=== PATIENT | female | born 1975 ===

== ENCOUNTER 2016-10-21 17:26 | Emergency (ER) | payer OTHER ==
[2016-10-21 17:26] VITALS: BMI 25.4
[2016-10-21 17:31] VITALS: BP 116/75; PULSE 76; RESP 18; TEMP 97.5; O2SAT 100
[2016-10-21] MEDS ORDERED: Penicillin G Benzathine 2.4 Mill Unit/4 ml Syr IM ONE (17:56)
[2016-10-21] MEDS ORDERED: Penicillin G Benzathine 1.2 Mill Unit/2 ml Syr IM ONE ×2 (18:00)
--- NOTE | 2016-10-21 18:00 | C.PDOC ---
History Of Present Illness 40 yr old female presents to the ER with complaints of sore throat for the past 3 days, associated with fever, chills and generalized myalgia. Reports taking a Tylenol [employer]. Patient denies sick contact, chest pain, SOB, nausea, vomiting, headache, weakness or numbness. Time Seen by Provider: 10/21/16 17:43 Chief Complaint (Nursing): ENT Problem History Per: Patient History/Exam Limitations: no limitations Onset/Duration Of Symptoms: Days (3) Current Symptoms Are (Timing): Still Present Sick Contacts (Context): None Past Medical History Reviewed: Historical Data, Nursing Documentation, Vital Signs Vital Signs: Last Vital Signs Temp 97.5 F L 10/21/16 17:29 Pulse 76 10/21/16 17:29 Resp 18 10/21/16 17:29 BP 116/75 10/21/16 17:29 Pulse Ox 100 10/21/16 18:00 Family History: States: No Known Family Hx - Social History Hx Tobacco Use: No Hx Alcohol Use: No Hx Substance Use: No - Immunization History Hx Tetanus Toxoid Vaccination: No Hx Influenza Vaccination: No Hx Pneumococcal Vaccination: No Review Of Systems Except As Marked, All Systems Reviewed And Found Negative. Constitutional: Positive for: Fever (Subjective), Chills, Other ((+) Generalized myalgia) ENT: Positive for: Throat Pain (Sore throat ) Cardiovascular: Negative for: Chest Pain Respiratory: Negative for: Shortness of Breath Gastrointestinal: Negative for: Nausea, Vomiting Neurological: Negative for: Weakness, Numbness, Headache Physical Exam - Physical Exam Appears: Well, Non-toxic, No Acute Distress Skin: Warm, Dry, No Rash Head: Atraumatic, Normacephalic Oral Mucosa: Moist Throat: Exudate, No Drooling, Other ((+) Bilateral pharyngitis with swelling. Uvula is midline.) Neck: Normal, Normal ROM, Supple Chest: Symmetrical, No Tenderness Cardiovascular: Rhythm Regular, No Murmur Respiratory: Normal Breath Sounds, No Rales, No Rhonchi, No Stridor, No Wheezing Gastrointestinal/Abdominal: Normal Exam, Soft, No Tenderness, No Guarding, No Rebound Extremity: Normal ROM, No Swelling Neurological/Psych: Oriented x3, Normal Speech, Normal Motor ED Course And Treatment O2 Sat by Pulse Oximetry: 100 Medical Decision Making Medical Decision Making: PLAN: * Motrin PO * Decadron PO * Penicillin IM Disposition Counseled Patient/Family Regarding: Diagnosis, Need For Followup, Rx Given - Disposition Referrals: [facility] [Outside] [facility] [Outside] Disposition: HOME/ ROUTINE Disposition Time: 17:58 Condition: IMPROVED Additional Instructions: Agregue scooter cucharadita de funmilayo de tejeda o funmilayo sariah a ocho onzas de agua. El agua salada puede reducir la hinchazn en la garganta extrayendo el agua de los tejidos de chappell garganta. La funmilayo tambin acta tyler un agente antibacteriano b sico, por lo que la funmilayo se utiliza para curar algunos alimentos de estropear por la prevencin del crecimiento de bacterias Prescriptions: Ibuprofen [Motrin] 600 mg PO Q6 #30 tab Instructions: Pharyngitis (ED) Forms: Work Excuse Print Language: BELARUSIAN - Clinical Impression Clinical Impression: Pharyngitis - Scribe Statement The provider has reviewed the documentation as recorded by the Scribe Laya Scott Provider Attestation: All medical record entries made by the Scribe were at my direction and personally dictated by me. I have reviewed the chart and agree that the record accurately reflects my personal performance of the history, physical exam, medical decision making, and the department course for this patient. I have also personally directed, reviewed, and agree with the discharge instructions and disposition.
== END 2016-10-21 18:24 | disposition home or self-care (01) ==
LOC: C.ER 17:26
DX: J02.9 Acute pharyngitis, unspecified (principal)
CPT/HCPCS: 96372; 99283; J0561; J8540

== ENCOUNTER 2016-12-21 14:41 | Observation (INO) | payer OTHER ==
[2016-12-21 14:41] VITALS: BMI 25.4
[2016-12-21 14:46] VITALS: O2SAT 100
[2016-12-21] MEDS ORDERED: Sodium Chloride 0.9% 1,000 ML IV ONE (15:14)
[2016-12-21 15:18] LABS: RBC URINE 2 /hpf (0-3); URINE BILIRUBIN NEGATIVE (NEGATIVE); URINE BLOOD NEGATIVE (NEGATIVE); URINE COLOR Yellow (YELLOW); URINE GLUCOSE (UA) NORMAL (Normal); URINE KETONE NEGATIVE (NEGATIVE); URINE LEUKOCYTE ESTERASE NEG Leu/uL (Negative); URINE PROTEIN NEGATIVE (NEGATIVE); URINE UROBILINOGEN NORMAL mg/dL (0.2-1.0); WBC URINE < 1 /hpf (0-5)
[2016-12-21] MEDS ORDERED: Sodium Chloride 0.9% 1,000 ML ONE (15:19)
[2016-12-21 15:26] LABS: BASO % 0.4 % (0.0-2.0); EOS # 0.1 K/uL (0.0-0.7); EOS % 1.8 % (0.0-4.0); HEMATOCRIT 32.9 % (34.0-47.0); LYMPH # 2.7 K/uL (1.0-4.3); LYMPH % 36.5 % (20.0-40.0); MEAN CELL VOLUME 75.1 fL (81.0-99.0); MEAN CORPUSCULAR HEMOGLOBIN 23.5 pg (27.0-31.0); MEAN CORPUSCULAR HGB CONC 31.3 g/dL (33.0-37.0); MEAN PLATELET VOLUME 9.1 fL (7.2-11.7); MONO # 0.6 K/uL (0.0-0.8); MONO % 8.1 % (0.0-10.0); RED CELL DISTRIBUTION WIDTH 16.2 % (11.5-14.5); WHITE BLOOD COUNT 7.5 K/uL (4.8-10.8)
[2016-12-21 15:45] LABS: CHLORIDE 103 mmol/L (98-107)
[2016-12-21 15:46] LABS: POTASSIUM 3.8 mmol/L (3.6-5.2); SODIUM 138 mmol/L (132-148)
[2016-12-21 15:48] LABS: ALB/GLOB RATIO 1.1 (1.0-2.1); ALKALINE PHOSPHATASE 77 U/L (38-126); AST/SGOT 20 U/L (14-36); BILIRUBIN,TOTAL 0.3 mg/dL (0.2-1.3); BLOOD UREA NITROGEN 14 mg/dL (7-17); CARBON DIOXIDE 26 mmol/L (22-30); GFR AFRICAN-AMERICAN > 60; TOTAL PROTEIN 7.4 g/dL (6.3-8.3)
[2016-12-21 15:49] LABS: ALT/SGPT 23 U/L (9-52); CALCIUM 8.5 mg/dl (8.6-10.4); GLUCOSE,RANDOM 101 mg/dL (65-105)
--- NOTE | 2016-12-21 16:40 | CT ---
PROCEDURE: CT Abdomen and Pelvis without intravenous contrast HISTORY: LEFT FLANK, LLQ PAIN,R/O KIDNEY STONE COMPARISON: None. TECHNIQUE: Technique. Contrast Dose: Radiation dose: Total exam DLP = 294 mGy-cm. This CT exam was performed using one or more of the following dose reduction techniques: Automated exposure control, adjustment of the mA and/or kV according to patient size, and/or use of iterative reconstruction technique. FINDINGS: LOWER THORAX: Unremarkable. LIVER: Unremarkable. No gross lesion or ductal dilatation. GALLBLADDER AND BILE DUCTS: Unremarkable. PANCREAS: Unremarkable. No gross lesion or ductal dilatation. SPLEEN: Unremarkable. ADRENALS: Unremarkable. No mass. KIDNEYS AND URETERS: Unremarkable. No hydronephrosis. No solid mass. VASCULATURE: Unremarkable. No aortic aneurysm. BOWEL: Unremarkable. No obstruction. No gross mural thickening. APPENDIX: Unremarkable. Normal appendix. PERITONEUM: Unremarkable. No free fluid. No free air. LYMPH NODES: Unremarkable. No enlarged lymph nodes. BLADDER: Unremarkable. REPRODUCTIVE: 2 centimeter left ovarian cystic lesion probably representing a physiological cyst. Recommend correlation with pelvic ultrasound.. BONES: No acute fracture. OTHER FINDINGS: None. IMPRESSION: 2 centimeter left ovarian cystic lesion probably representing a physiological cyst. Recommend correlation with pelvic ultrasound..
--- NOTE | 2016-12-21 16:50 | C.PDOC ---
History Of Present Illness 41-year-old female with PMHx of RA presents to the emergency department with complaints of left-flank/low back pain that started four days ago. Pain is constant in nature and radiates to left-lower quadrant/pelvis. Patient has associated nausea and mild dysuria. She denies vomiting, fever, diarrhea, hematuria, vaginal bleeding/discharge. Time Seen by Provider: 12/21/16 14:53 Chief Complaint (Nursing): Back Pain History Per: Patient History/Exam Limitations: no limitations Onset/Duration Of Symptoms: Days Current Symptoms Are (Timing): Still Present Quality Of Discomfort: "Pain" Severity: Moderate Previous Symptoms: Back Pain Associated Symptoms: denies: Incontinence, New Weakness, New Numbness Past Medical History Reviewed: Historical Data, Nursing Documentation, Vital Signs Vital Signs: Last Vital Signs Temp 97.6 F 12/21/16 14:46 Pulse 60 12/21/16 17:51 Resp 18 12/21/16 17:51 BP 119/65 12/21/16 17:51 Pulse Ox 100 12/21/16 18:47 - Medical History PMH: Rheumatoid Arthritis Denies: Chronic Kidney Disease Family History: States: No Known Family Hx - Social History Hx Tobacco Use: No Hx Alcohol Use: No Hx Substance Use: No - Immunization History Hx Tetanus Toxoid Vaccination: No Hx Influenza Vaccination: No Hx Pneumococcal Vaccination: No Review Of Systems Except As Marked, All Systems Reviewed And Found Negative. Constitutional: Negative for: Fever, Chills Cardiovascular: Negative for: Chest Pain, Palpitations Respiratory: Negative for: Cough, Shortness of Breath Gastrointestinal: Positive for: Nausea, Abdominal Pain. Negative for: Vomiting , Diarrhea Genitourinary: Positive for: Dysuria. Negative for: Hematuria, Vaginal Discharge, Vaginal Bleeding Musculoskeletal: Positive for: Back Pain Skin: Negative for: Rash Neurological: Negative for: Weakness, Numbness, Headache Physical Exam - Physical Exam Appears: Well, Non-toxic, In Acute Distress (in mild pain ) Skin: Warm, Dry, No Rash Oral Mucosa: Moist Cardiovascular: Rhythm Regular Respiratory: Normal Breath Sounds, No Rales, No Rhonchi, No Wheezing Gastrointestinal/Abdominal: Bowel Sounds, Soft, Tenderness (mild LLQ/pelvis TTP. (-)McBurney's), No Guarding, No Rebound Back: CVA Tenderness (Mild, left.), No Vertebral Tenderness, No Paraspinal Tenderness Extremity: Normal ROM Neurological/Psych: Oriented x3 ED Course And Treatment - Laboratory Results Result Diagrams: 12/21/16 15:20 12/21/16 15:20 O2 Sat by Pulse Oximetry: 100 (RA) Pulse Ox Interpretation: Normal - CT Scan/US CT ABD/PEL Other Rad Studies (CT/US): Read By Radiologist, Radiology Report Reviewed CT/US Interpretation: Accession No. : [id number]. Patient Name / ID : MAGDALENO QUEZADA / [id number]. Exam Date : 12/21/2016 16:18:14 ( Approved ). Study Comment : Sex / Age : F / 41Y. Creator : Pedrito Mcmillan MD. Dictator : Pedrito Mcmillan MD. Clinical Documentation Spec : Application Administrator : Pedrito Mcmillan MD. Approver2 : Report Date : 12/21/2016 16:39:26. My Comment : . PROCEDURE: CT Abdomen and Pelvis without intravenous contrast. HISTORY: LEFT FLANK, LLQ PAIN,R/O KIDNEY STONE. COMPARISON: None. TECHNIQUE: Technique. Contrast Dose: Radiation dose: Total exam DLP = 294 mGy-cm. This CT exam was performed using one or more of the following dose reduction techniques: Automated exposure control, adjustment of the mA and/or kV according to patient size, and/or use of iterative reconstruction technique. FINDINGS: LOWER THORAX : Unremarkable. LIVER: Unremarkable. No gross lesion or ductal dilatation. GALLBLADDER AND BILE DUCTS: Unremarkable. PANCREAS: Unremarkable. No gross lesion or ductal dilatation. SPLEEN: Unremarkable. ADRENALS: Unremarkable. No mass. KIDNEYS AND URETERS: Unremarkable. No hydronephrosis. No solid mass. VASCULATURE: Unremarkable. No aortic aneurysm. BOWEL: Unremarkable. No obstruction. No gross mural thickening. APPENDIX: Unremarkable. Normal appendix. PERITONEUM: Unremarkable. No free fluid. No free air. LYMPH NODES: Unremarkable. No enlarged lymph nodes. BLADDER: Unremarkable. REPRODUCTIVE : 2 centimeter left ovarian cystic lesion probably representing a physiological cyst. Recommend correlation with pelvic ultrasound.. BONES: No acute fracture. OTHER FINDINGS: None. IMPRESSION: 2 centimeter left ovarian cystic lesion probably representing a physiological cyst. Recommend correlation with pelvic ultrasound.. Progress Note: Bloodwork, UA/HCG ordered and reviewed. Patient given IV Ns bolus , IV toradol. 5:35pm- CT scan (-) for kidney stone, recommends transvaginal US for eval of cystic lesion left ovary/adnexa. Disposition - Disposition Disposition Time: 19:00 Condition: STABLE - Clinical Impression Clinical Impression: LLQ pain - Scribe Statement The provider has reviewed the documentation as recorded by the Scribe Keke Lowry All medical record entries made by the Scribe were at my direction and personally dictated by me. I have reviewed the chart and agree that the record accurately reflects my personal performance of the history, physical exam, medical decision making, and the department course for this patient. I have also personally directed, reviewed, and agree with the discharge instructions and disposition. Physician Patient Turnover Patient Signed Over To: Kirstin Rice Handoff Comments: pending ultrasound and reassessment/dispo
--- NOTE | 2016-12-21 20:51 | US ---
EXAM: US Pelvis Complete, Transabdominal CLINICAL HISTORY: 41 years old, female; Pain; Pelvic pain; LMP 12/18/16 Gender: female TECHNIQUE: Real-time transabdominal pelvic ultrasound (complete) with image documentation. COMPARISON: There are no prior studies for comparison. FINDINGS: Uterus uterus is retroflexed. The uterus measures approximately 8 x 4 x 6 cm. Endometrium could not be identified Right ovary: Right ovary could not be identified Left ovary: Left ovary measures 2.8 x 2.2 x 2.8 cm.There is expected blood flow on Doppler imaging. There is a small follicle Free fluid: No free fluid. Bladder: Bladder is partially distended IMPRESSION: Retroflexed uterus, nonvisualization endometrium; nonvisualization right ovary EXAM: US Pelvis, Transvaginal CLINICAL HISTORY: 41 years old, female; Pain; Pelvic pain; LMP 12/18/16 Gender: female TECHNIQUE: Real-time transvaginal pelvic ultrasound (complete) with image documentation. Transvaginal imaging was used for better evaluation of the endometrium and adnexa. EXAM DATE/TIME: 12/21/2016 5:50 PM COMPARISON: There are no prior studies for comparison. FINDINGS: Uterus: Uterus measures 7.6 x 5.6 x 5.4 cm. Endometrium is thickened and heterogeneous. Endometrium measures approximately 10 mm in width.. There is a 2.6 x 0.7 x 0.9 cm heterogeneous mass projecting in the endometrial canal. There is complex fluid in the endometrial canal. Right ovary: Right ovary measures approximately 3.22 x 1.75 x 3.03 cm.There are multiple small follicles. There is intraovarian blood flow. Left ovary: Left ovary measures approximately 3.07 x 1.95 x 2.40 cm. There are multiple follicles in the left ovary.There is a dominant follicle. There is intraovarian blood flow. Free fluid: There is trace free fluid. Bladder: Bladder is empty IMPRESSION: Thickened endometrium with complex fluid and small mass in the endometrial canal possibly polyp; no torsion; small amount of free fluid is likely physiologic Gynecologic consultation is advised
[2016-12-21 21:37] VITALS: BP 120/76; PULSE 52; RESP 20; TEMP 98.2
== END 2016-12-21 21:26 | disposition home or self-care (01) ==
LOC: C.ER 14:41 → C.9OBSV 19:02
PROVIDERS: ADMIT Emergency Medicine; ATTEND Emergency Medicine
DX: R10.32 Left lower quadrant pain (principal); N84.1 Polyp of cervix uteri; M06.9 Rheumatoid arthritis, unspecified
CPT/HCPCS: 74176; 76830; 76856; 80053; 81001; 83690; 84703; 85025; 96374; 99285; G0378; J1885; J7040

== ENCOUNTER 2017-03-26 16:12 | Emergency (ER) | payer OTHER ==
[2017-03-26 16:12] VITALS: BMI 25.4
[2017-03-26 16:36] VITALS: RESP 18
[2017-03-26 18:01] LABS: RBC URINE < 1 /hpf (0-3); URINE BILIRUBIN NEGATIVE (NEGATIVE); URINE BLOOD NEGATIVE (NEGATIVE); URINE COLOR Yellow (YELLOW); URINE GLUCOSE (UA) NORMAL (Normal); URINE KETONE NEGATIVE (NEGATIVE); URINE LEUKOCYTE ESTERASE NEG Leu/uL (Negative); URINE PROTEIN NEGATIVE (NEGATIVE); URINE UROBILINOGEN NORMAL mg/dL (0.2-1.0); WBC URINE < 1 /hpf (0-5)
--- NOTE | 2017-03-26 18:25 | C.PDOC ---
History Of Present Illness 41 year old female who presents to the ER with a complaint of a gradually worsening diffuse headache for the past 4 days, associated with nausea and dizziness. Patient reports she had a similar episode a few months ago; she saw her PMD who sent her for a CT scan, which was negative, and gave her an Rx for unknown migraine medication. Patient reports taking tylenol today with no relief to pain; denies fever, chills, vomiting, or abdominal pain.no neck pain or stiffness. Time Seen by Provider: 03/26/17 17:29 Chief Complaint (Nursing): Headache History Per: Patient History/Exam Limitations: no limitations Onset/Duration Of Symptoms: Days Current Symptoms Are (Timing): Still Present Preceeding Symptoms: None Associated Symptoms: Nausea. denies: Photophobia, Blurred Vision, Vomiting, Extremity Weakness Recent travel outside of the [place]: No Past Medical History Reviewed: Historical Data, Nursing Documentation, Vital Signs Vital Signs: Last Vital Signs Temp 97.9 F 03/26/17 20:06 Pulse 61 03/26/17 20:06 Resp 18 03/26/17 20:06 BP 101/62 03/26/17 20:06 Pulse Ox 100 03/29/17 23:13 - Medical History PMH: Rheumatoid Arthritis Surgical History: No Surg Hx Family History: States: Unknown Family Hx - Social History Hx Tobacco Use: No Hx Alcohol Use: No Hx Substance Use: No - Immunization History Hx Tetanus Toxoid Vaccination: No Hx Influenza Vaccination: No Hx Pneumococcal Vaccination: No Review Of Systems Constitutional: Negative for: Fever, Chills Gastrointestinal: Positive for: Nausea. Negative for: Abdominal Pain Neurological: Positive for: Headache, Dizziness. Negative for: Weakness, Numbness Physical Exam - Physical Exam Appears: Non-toxic Skin: Normal Color, Warm, Dry Head: Atraumatic, Normacephalic Eye(s): bilateral: Normal Inspection, PERRL, EOMI, Other (no nystagmus) Oral Mucosa: Moist Throat: Normal, No Erythema, No Exudate Neck: Normal, Supple Chest: Symmetrical, No Tenderness Cardiovascular: Rhythm Regular, No Murmur Respiratory: Normal Breath Sounds, No Rales, No Rhonchi, No Wheezing Gastrointestinal/Abdominal: Soft, No Tenderness Extremity: Normal ROM (x4), No Tenderness Neurological/Psych: Oriented x3, Normal Speech, Normal Cognition, Normal Cranial Nerves, Normal Motor, Normal Sensation ED Course And Treatment O2 Sat by Pulse Oximetry: 100 (Room air) Pulse Ox Interpretation: Normal Medical Decision Making Medical Decision Making: Plan: Reglan 647 pm pt reports decreasing pain. 805 pm pt sts pain resolved, will d/c with pmd follow up. Disposition Counseled Patient/Family Regarding: Diagnosis, Need For Followup, Rx Given - Disposition Disposition: HOME/ ROUTINE Disposition Time: 20:06 Condition: IMPROVED Additional Instructions: Por favor, siga con chappell mdico en 1-2 aguilar. Matt Tylenol si vuelve el dolor de [place]. Vuelva a la licha de emergencias por cualquier sntoma peor., Prescriptions: Acetaminophen [Tylenol Extra Strength] 1,000 mg PO Q8 #30 tablet Forms: Gen Discharge Inst Tamazight, its learning (Tamazight) Print Language: NIUEAN - Clinical Impression Clinical Impression: Headache - Scribe Statement The provider has reviewed the documentation as recorded by the Scribe Dereje Cervantes All medical record entries made by the Scribe were at my direction and personally dictated by me. I have reviewed the chart and agree that the record accurately reflects my personal performance of the history, physical exam, medical decision making, and the department course for this patient. I have also personally directed, reviewed, and agree with the discharge instructions and disposition.
[2017-03-26 20:06] VITALS: BP 101/62; PULSE 61; TEMP 97.9
[2017-03-26 20:08] VITALS: O2SAT 100
== END 2017-03-26 20:14 | disposition home or self-care (01) ==
LOC: C.ER 16:12
DX: R51 Headache (principal)
CPT/HCPCS: 81001; 84703; 96374; 99284; J1885; J2765

== ENCOUNTER 2018-09-17 08:03 | Outpatient (CLI) | payer OTHER | END 2018-09-17 08:04 | disposition home or self-care (01) | LOC: C.CTH 08:03 | DX: R51 Headache (principal); Z00.00 Encounter for general adult medical examination without abnormal findings ==

== ENCOUNTER 2018-11-06 15:19 | Outpatient (CLI) | payer OTHER | END 2018-11-06 15:20 | disposition home or self-care (01) | LOC: C.USIC 15:19 | DX: N92.0 Excessive and frequent menstruation with regular cycle (principal) ==

== ENCOUNTER 2018-11-07 11:01 | Outpatient (CLI) | payer OTHER | END 2018-11-07 11:02 | disposition home or self-care (01) | LOC: C.LAB 11:01 | DX: N92.0 Excessive and frequent menstruation with regular cycle (principal) ==